=== PATIENT | female | born 1995 | race Caucasian/White ===

== ENCOUNTER → 2018-11-04 | Outpatient (CLI) | payer BC ==
--- NOTE | ~2018-11-04 | EEG ---
[facility] [address] [address] ELECTROENCEPHALOGRAM Name: OMAR DOMINGUEZ Room #: [facility].#: [id number] Admission: 11/04/18 Attend Phys: Dorian Joshi MD Discharge: Date of : 89 Report #: [id number] THIS REPORT FOR: //name// CC: FAM physician/PCP Dorian Joshi DATE OF SERVICE: 11/04/2018 This patient is being evaluated for a seizure disorder. EEG was done by placing the electrode by standard 10-20 system of electrode placement. Both referential and sequential montages were used for recording. Background activity in this patient's EEG is about 9-10 Hz and 30 microvolt. The patient became drowsy that is associated with bilateral slowing, vertex sharp waves and sleep spindles. Throughout the record, no active epileptiform activity was noticed. Photic stimulation was unremarkable. IMPRESSION: This patient's EEG does not demonstrate any active epileptiform activity. Thank you very much for this referral. By: [id number] Dorian Joshi MD /nt
== END ==
LOC: NEURO 09:48 → MRI 09:48
DX: J34.1 Cyst and mucocele of nose and nasal sinus (principal)